=== PATIENT | female | born 1955 | race Two or more races ===

== ENCOUNTER 2017-01-01 12:32 | Emergency (ER) | payer OTHER, MEDICAID ==
[~2017-01-01] VITALS: Ht 172.7 cm; Wt 72.0 kg
[~2017-01-01 12:32] MED LIST: SIMV5TAB53; WARF1TAB46; [UNRECOGNIZED DRUG - CODE]
[2017-01-01 12:33] VITALS: BP 131/98
== END 2017-01-01 15:23 | disposition home or self-care (01) ==
LOC: ER 14:43
DX: H66.92 Otitis media, unspecified, left ear (principal); M19.90 Unspecified osteoarthritis, unspecified site; I51.9 Heart disease, unspecified; Z79.01 Long term (current) use of anticoagulants; Z95.5 Presence of coronary angioplasty implant and graft
CPT/HCPCS: 99283